=== PATIENT | male | born 1980 | race Two or more races ===

== ENCOUNTER 2019-11-24 12:08 | Emergency (ER) | payer SELFPAY ==
[~2019-11-24] VITALS: Ht 160 cm; Wt 64.0 kg
[2019-11-24 12:13] VITALS: BP 134/90
== END 2019-11-24 13:35 | disposition home or self-care (01) ==
LOC: ER 12:08
DX: S61.411A Laceration without foreign body of right hand, initial encounter (principal); W25.XXXA Contact with sharp glass, initial encounter; Y93.89 Activity, other specified; Y92.89 Other specified places as the place of occurrence of the external cause; Y99.8 Other external cause status
CPT/HCPCS: 12002; 99283

== ENCOUNTER 2019-11-28 09:45 | Emergency (ER) | payer MEDICAID, OTHER ==
[~2019-11-28] VITALS: Ht 160 cm; Wt 63.0 kg
[2019-11-28] MEDS ORDERED: TETANUS, DIPHTHERIA, PERTUSSIS VAC/PF 0.5ML (>7YR OLD) IM ONE (11:30)
[2019-11-28 11:40] VITALS: BP 129/76
== END 2019-11-28 11:41 | disposition home or self-care (01) ==
LOC: ER 09:45
DX: Z48.00 Encounter for change or removal of nonsurgical wound dressing (principal)
CPT/HCPCS: 90471; 90715; 99283

== ENCOUNTER 2019-12-13 08:38 | Emergency (ER) | payer OTHER ==
[~2019-12-13] VITALS: Ht 162.6 cm; Wt 79.0 kg
[2019-12-13 09:32] VITALS: BP 132/85
[2019-12-13 11:43] LABS: CLARITY URINE CLEAR (CLEAR); COLOR URINE YELLOW (YELLOW); KETONES URINE NEGATIVE (NEGATIVE); LEUKOCYTE ESTERASE URINE NEGATIVE (NEGATIVE); NITRITE URINE NEGATIVE (NEGATIVE); OCCULT BLOOD URINE NEGATIVE (NEGATIVE); PROTEIN URINE NEGATIVE (NEGATIVE); UROBILINOGEN URINE 0.2 E.U./dL (0.2-1.0)
== END 2019-12-13 12:07 | disposition home or self-care (01) ==
LOC: ER 08:38
DX: S61.411D Laceration without foreign body of right hand, subsequent encounter (principal); W18.39XD Other fall on same level, subsequent encounter; K52.9 Noninfective gastroenteritis and colitis, unspecified
CPT/HCPCS: 81003; 82962; 99283